=== PATIENT | male | born 1975 | race Caucasian/White ===

== ENCOUNTER 2018-03-05 19:08 | Emergency (ER) | payer BC, OTHER ==
[2018-03-05 19:34] VITALS: BP 121/71
--- NOTE | 2018-03-05 19:59 | UC ---
Skin Complaint HPI - HPI Summary HPI Summary: Pt c/o tick bite to left lower back. Pt is unsure of length of time of tick being attached. Pt removed tick today. Pt is a type 1 diabetic. is concerned about lyme disease. - History of Current Complaint Chief Complaint: [facility] Time Seen by Provider: 03/05/18 19:54 Stated Complaint: TICK BITE Hx Obtained From: Patient Onset/Duration: Sudden Onset Timing: Constant Onset Severity: Mild Current Severity: None Pain Intensity: 0 Location: Discrete Character: Redness Aggravating Factor(s): Nothing Associated Signs & Symptoms: Positive: Negative Related History: Insect Bite/Sting - Allergy/Home Medications Allergies/Adverse Reactions: Allergies Allergy/AdvReac Type Severity Reaction Status Date / Time amoxicillin Allergy Unknown Rash Verified 03/05/18 19:28 Home Medications: Home Medications Insulin GLARGINE(*) [Lantus(*)] 18 units SUBCUT Q24H 03/05/18 [History Confirmed 03/05/18] Insulin LISPRO* [HumaLOG*] 0 units SUBCUT DIRECTED 03/05/18 [History Confirmed 03/05/18] PMH/Surg Hx/FS Hx/Imm Hx Previously Healthy: Yes - Surgical History Surgical History: Yes Surgery Procedure, Year, and Place: RETINA SX. TESTICULAR SX. CATARACT SX - Family History Known Family History: Positive: Cardiac Disease - Social History Occupation: Employed Full-time Lives: With Family Alcohol Use: Rare Substance Use Type: None Smoking Status (MU): Heavy Every Day Tobacco Smoker Type: Cigarettes Amount Used/How Often: 1/2PPD Have You Smoked in the Last Year: Yes Household Exposure Type: Cigarettes Review of Systems All Other Systems Reviewed And Are Negative: Yes Constitutional: Positive: Negative Skin: Positive: Other - tick bite Eyes: Positive: Negative ENT: Positive: Negative Respiratory: Positive: Negative Cardiovascular: Positive: Negative Gastrointestinal: Positive: Negative Genitourinary: Positive: Negative Neurovascular: Positive: Negative Musculoskeletal: Positive: Negative Neurological: Positive: Negative Psychological: Positive: Negative Is Patient Immunocompromised?: No Physical Exam Triage Information Reviewed: Yes Appearance: Well-Appearing Vital Signs: Initial Vital Signs Temp 97.7 F 03/05/18 19:30 Pulse 77 03/05/18 19:30 Resp 16 03/05/18 19:30 BP 121/71 03/05/18 19:30 Pulse Ox 99 03/05/18 19:30 Vital Signs Reviewed: Yes Eye Exam: Normal ENT Exam: Normal Dental Exam: Normal Neck exam: Normal Respiratory: Positive: No respiratory distress Musculoskeletal Exam: Normal Neurological Exam: Normal Psychological Exam: Normal Skin Exam: Other - eraser head size erythematous area left lower back Course/Dx - Differential Diagnoses - Skin Complaint Differential Diagnoses: Tick Born Illness - Diagnoses Provider Diagnosis: Tick bite of back Discharge - Sign-Out/Discharge Documenting (check all that apply): Patient Departure All imaging exams completed and their final reports reviewed: No Studies - Discharge Plan Condition: Stable Disposition: HOME Prescriptions: DOXYcycline CAP(*) [DOXYcycline 100MG CAP(*)] 100 mg PO Q12H #20 cap Patient Education Materials: Tick Bite (ED) Referrals: Xavier Lowery MD [Primary Care Provider] - If Needed - Billing Disposition and Condition Condition: STABLE Disposition: Home
== END 2018-03-05 20:05 | disposition home or self-care (01) ==
LOC: UCCORT 19:08
DX: T63.481A Toxic effect of venom of other arthropod, accidental (unintentional), initial encounter (principal); E10.9 Type 1 diabetes mellitus without complications; Z79.4 Long term (current) use of insulin; Z88.0 Allergy status to penicillin; F17.210 Nicotine dependence, cigarettes, uncomplicated
CPT/HCPCS: 99202; G0463